=== PATIENT | male | born 1960 | race Hispanic/Latino ===

== ENCOUNTER 2020-11-26 11:00 | Outpatient (CLI) | payer OTHER ==
--- NOTE | 2020-11-26 14:14 | XRay Report ---
RIGHT HAND 3 VIEWS INDICATION / CLINICAL INFORMATION: RIGHT HAND PAIN COMPARISON: None available. FINDINGS: BONES / JOINT(S): No acute fracture. Mild ulnar deviation is seen at the metacarpophalangeal joints g reatest at the second and third digits. Underlying bony erosions are scattered greatest at the distal ulna typical of inflammatory arthritis. DJD is greatest at the second and third metacarpophalangeal joints and along the radial aspect of the carpus were changes are at least moderate. SOFT TISSUES: No significant abnormality. ADDITIONAL FINDINGS: None. Signer Name: Slim Mcclain MD Signed: 11/26/2020 2:10 PM Workstation Name: [email or web address]
--- NOTE | 2020-11-26 15:01 | XRay Report ---
LEFT KNEE 3 VIEW(S) INDICATION / CLINICAL INFORMATION: LEFT KNEE PAIN COMPARISON: None available. FINDINGS: BONES / JOINT(S): Postoperative change from ACL graft reconstruction with screws in the femoral and t ibial tunnels. Alignment appears satisfactory. No acute fracture or dislocation. Advanced tricompartm ental degenerative osteoarthrosis, likely greatest in the medial tibiofemoral compartment. Mild chond rocalcinosis in the lateral tibiofemoral compartment. Small effusion. SOFT TISSUES: No significant abnormality. ADDITIONAL FINDINGS: None. Signer Name: Prasanna Patel MD Signed: 11/26/2020 2:56 PM Workstation Name: [id number]
--- NOTE | 2020-11-26 15:10 | XRay Report ---
RIGHT ANKLE 3 VIEW(S) INDICATION / CLINICAL INFORMATION: RIGHT ANKLE PAIN COMPARISON: None available. FINDINGS: BONES / JOINT(S): No acute fracture or subluxation. Moderately advanced degenerative changes at the t ibiotalar joint. Mild midfoot degenerative changes. Prominent retrocalcaneal and inferior calcaneal e nthesophytes. Likely mild Achilles enthesopathy. Mildly prominent Stieda process. SOFT TISSUES: No significant abnormality. ADDITIONAL FINDINGS: None. Signer Name: Prasanna Patel MD Signed: 11/26/2020 3:05 PM Workstation Name: [id number]
== END 2020-11-26 11:01 | disposition home or self-care (01) ==
LOC: XRAY 11:00
PROVIDERS: ATTEND Internal Medicine
DX: M19.071 Primary osteoarthritis, right ankle and foot (principal); M77.31 Calcaneal spur, right foot; M17.12 Unilateral primary osteoarthritis, left knee; M25.462 Effusion, left knee; M11.262 Other chondrocalcinosis, left knee; M19.041 Primary osteoarthritis, right hand